=== PATIENT | female | born 1995 | race Caucasian/White ===

== ENCOUNTER 2017-07-15 23:17 | Emergency (ER) | payer BC, SELFPAY ==
[2017-07-15 23:18] VITALS: BP 155/78; PULSE 109; RESP 16; TEMP 36.3; O2SAT 99; BMI 25.8
--- NOTE | 2017-07-15 23:30 | ED.VISSUMM ---
- ER Visit Summary Date of Service: 07/15/17 Chief Complaint: Abdominal pain History of Present Illness: The patient is a 22 F who presents for abdominal pain since this afternoon. Patient states she was having some mild right-sided abdominal pain that gradually worsened over the afternoon. She felt a popping sensation and had more severe pain radiating into the right lower quadrant and into her back. Pain is worse with movement or breathing. She has had associated nausea, vomiting and diarrhea. She has had chills but no measured fever. No dysuria or hematuria. No blood in her stool. She is currently on her period, which is lasted 3 days longer than normal with associated cramping. She states her tampon was very painful to put in today. She does not think she is . History of endometriosis. No history of appendectomy. Patient has been sexually active with the same partner for 2-1/2 years. She has no concerns for sexually transmitted infections. Physical Examination: Vital signs: afebrile, hemodynamically stable, no hypoxia on room air General: well nourished, well developed, appears uncomfortable Skin: warm, dry, no rash, no pallor HEENT: normocephalic and atraumatic; PERRL, EOMI, moist mucous membranes Cardiovascular: tachycardic rate and rhythm without murmurs, no peripheral edema, 2+ pulses all distal extremities Respiratory: No increased work of breathing, lungs are clear to auscultation bilaterally, no rales, rhonchi or wheezing Abdominal: Abdomen is soft, diffusely tender with normoactive bowel sounds, worst in RLQ and McBurney's point, mild rebound tenderness, no guarding, no masses : Normal external genitalia, no lesions, speculum exam shows dark homogenous bloody discharge from the cervix, positive cervical motion tenderness MSK: Moves all extremities, no deformities, normal strength Neuro: Awake and alert, oriented ?4. No facial droop, sensation and motor function intact and symmetric Test Results: Abnormal Lab Results 07/15/17 07/15/17 07/15/17 23:40 23:40 23:55 WBC 12.2 H RBC 4.28 Hgb 13.6 Hct 38.2 MCV 89.3 MCH 31.8 MCHC 35.6 RDW 12.4 RDW Differential 39.9 Plt Count 273 MPV 9.8 Immature Gran % (Auto) 0.200 Neut % (Auto) 77.4 H Lymph % (Auto) 15.8 L [place] % (Auto) 5.7 Eos % (Auto) 0.7 Baso % (Auto) 0.2 Absolute Neuts (auto) 9.4 H Absolute Lymphs (auto) 1.92 Total Counted Not Reportable Sodium 139 Potassium 3.6 Chloride 107 Carbon Dioxide 24.0 Anion Gap 8 BUN 12 Creatinine 0.74 Estim Creat Clear Calc 120.29 Est GFR (MDRD) Af Amer 125 Est GFR (MDRD) Non-Af 103 BUN/Creatinine Ratio 16.2 Glucose 94 Calcium 8.8 Total Bilirubin 0.50 AST 15 ALT 9 L Alkaline Phosphatase 75 Total Protein 7.8 Albumin 3.7 Globulin 4.1 Albumin/Globulin Ratio 0.9 Lipase 78 Urine Color Urine Clarity Urine pH Ur Specific [place] Urine Protein Urine Glucose (UA) Urine Ketones Urine Occult Blood Urine Nitrite Urine Bilirubin Urine Urobilinogen Ur Leukocyte Esterase Urine RBC Urine WBC Ur Squamous Epith Cells Urine Bacteria Urine Mucus Urine Test Negative 07/15/17 23:55 WBC RBC Hgb Hct MCV MCH MCHC RDW RDW Differential Plt Count MPV Immature Gran % (Auto) Neut % (Auto) Lymph % (Auto) [place] % (Auto) Eos % (Auto) Baso % (Auto) Absolute Neuts (auto) Absolute Lymphs (auto) Total Counted Sodium Potassium Chloride Carbon Dioxide Anion Gap BUN Creatinine Estim Creat Clear Calc Est GFR (MDRD) Af Amer Est GFR (MDRD) Non-Af BUN/Creatinine Ratio Glucose Calcium Total Bilirubin AST ALT Alkaline Phosphatase Total Protein Albumin Globulin Albumin/Globulin Ratio Lipase Urine Color Yellow Urine Clarity Clear Urine pH 6.0 Ur Specific [place] 1.015 Urine Protein Negative Urine Glucose (UA) Normal Urine Ketones Negative Urine Occult Blood 150 H Urine Nitrite Negative Urine Bilirubin Negative Urine Urobilinogen Normal Ur Leukocyte Esterase Negative Urine RBC 0-5 SEEN Urine WBC 0 SEEN Ur Squamous Epith Cells 0-5 SEEN Urine Bacteria RARE Urine Mucus 0 SEEN Urine Test Clinical Impression(s) from Imaging Studies Abdomen/Pelvis CT 07/16/17 23:29 IMPRESSION: Bilateral ovarian cysts, hemorrhagic on the left, with small amount of complex free pelvic fluid in pelvic inflammatory fat stranding. Normal appendix. Heterogenous enhancement of the myometrium, may be related to given history of endometriosis. Emergency Department Course and Treatment: Patient presents with severe right lower abdominal pain, with differential including appendicitis, ectopic , ruptured cyst, ovarian torsion, stone, diverticulitis, or other intra-abdominal, rn care transition and pathology. Patient was given morphine and Zofran for symptomatic relief as well as IV hydration. Labs showed a mild leukocytosis of 12.2. Chemistry and hepatic panels were unremarkable. Urine was negative for infection. negative. Because of patient's severe pain in the right lower quadrant, a CT of the abdomen and pelvis was performed. It showed a normal appendix. It showed multiple cysts on the ovaries, including hemorrhagic cysts, as well as mild pelvic fat stranding and mild amount of complex free fluid in the pelvis. Patient discussed with Dr. Zelaya, graining machine operator construction craft laborer, regarding the CT findings. Patient's pulmonary function technician is out of town, and she recommended patient follow-up with her pulmonary function technician but be treated empirically for PID, given the findings on the CT scan. Patient does not suspect exposure to STD, but we also discussed it could be from normal bacterial georgi of the vagina. Given that it is painful for her to insert a tampon, and she had discomfort with palpation of the cervix, this makes PID more suspicious. She was given a dose of doxycycline and metronidazole in the emergency department. IM Rocephin given. Patient feels well enough to go home, and on repeat examination her pain had improved with the morphine. Abdomen is soft, distillery miller but no guarding or rebound at this time. She remains afebrile. Patient will do outpatient treatment empirically for PID and will follow-up as soon as possible with her pulmonary function technician for another evaluation. GC and Chlamydia are pending. Patient given prescription for [place] for her pain and Zofran for nausea, especially since she will be taking these antibiotics. She was discharged home with strict return precautions. Treatment Plan: [] Disposition: [] Impression: PID, RLQ abdominal pain This note was generated with [employer] dictation software. It may contain incorrect words, spelling, and punctuation that were not noted in review of the chart prior to signing ED Disposition - Plan for ED Patient: Disposition: Home or Assisted Living Chief Complaint: Abd Pain Instructions: ED PID Prescriptions: Hydrocodone/Acetaminophen [[place] 5-325 Tablet] 1 ea PO 4X/DAY PRN PRN 3 Days #12 tab PRN Reason: Pain Ondansetron [Zofran Odt] 4 mg PO TID PRN PRN #20 tab.rapdis PRN Reason: Nausea Doxycycline Monohydrate 100 mg PO BID #28 cap Metronidazole 500 mg PO BID #28 tab Referrals: Care Physician,No Primary [Primary Care Provider] - Additional Instructions: Please follow up with your pulmonary function technician Dr. Montesinos in [place] as soon as possible for a repeat evaluation of your pelvic pain. You are being treated with antibiotics in case this is a bacterial pelvic infection. Take all antibiotics as prescribed and do not miss doses, even if you start feeling better before you complete the prescriptions. You may stop taking them if advised to by your doctor. Do not drink alcohol while taking metronidazole. Avoid prolonged sun exposure while taking doxycycline. You may use the ondansetron to help with nausea from the antibiotics. Use over the counter pain medications for pain, and the norco for severe pain. Do not go to work if taking norco. If you develop a high fever, severe pain, uncontrolled vomiting, or have any further concerns, please return emergency department immediately for another evaluation.
--- NOTE | 2017-07-15 23:34 | ED.DCSUM_ITS ---
- ER Visit Summary Date of Service: 07/15/17 Chief Complaint: Abdominal pain History of Present Illness: The patient is a 22 F who presents for abdominal pain since this afternoon. Patient states she was having some mild right-sided abdominal pain that gradually worsened over the afternoon. She felt a popping sensation and had more severe pain radiating into the right lower quadrant and into her back. Pain is worse with movement or breathing. She has had associated nausea, vomiting and diarrhea. She has had chills but no measured fever. No dysuria or hematuria. No blood in her stool. She is currently on her period, which is lasted 3 days longer than normal with associated cramping. She states her tampon was very painful to put in today. She does not think she is . History of endometriosis. No history of appendectomy. Patient has been sexually active with the same partner for 2-1/2 years. She has no concerns for sexually transmitted infections. Physical Examination: Vital signs: afebrile, hemodynamically stable, no hypoxia on room air General: well nourished, well developed, appears uncomfortable Skin: warm, dry, no rash, no pallor HEENT: normocephalic and atraumatic; PERRL, EOMI, moist mucous membranes Cardiovascular: tachycardic rate and rhythm without murmurs, no peripheral edema , 2+ pulses all distal extremities Respiratory: No increased work of breathing, lungs are clear to auscultation bilaterally, no rales, rhonchi or wheezing Abdominal: Abdomen is soft, diffusely tender with normoactive bowel sounds, worst in RLQ and McBurney's point, mild rebound tenderness, no guarding, no masses : Normal external genitalia, no lesions, speculum exam shows dark homogenous bloody discharge from the cervix, positive cervical motion tenderness MSK: Moves all extremities, no deformities, normal strength Neuro: Awake and alert, oriented ?4. No facial droop, sensation and motor function intact and symmetric Test Results: Abnormal Lab Results 07/15/17 07/15/17 07/15/17 23:40 23:40 23:55 WBC 12.2 H RBC 4.28 Hgb 13.6 Hct 38.2 MCV 89.3 MCH 31.8 MCHC 35.6 RDW 12.4 RDW Differential 39.9 Plt Count 273 MPV 9.8 Immature Gran % (Auto) 0.200 Neut % (Auto) 77.4 H Lymph % (Auto) 15.8 L [place] % (Auto) 5.7 Eos % (Auto) 0.7 Baso % (Auto) 0.2 Absolute Neuts (auto) 9.4 H Absolute Lymphs (auto) 1.92 Total Counted Not Reportable Sodium 139 Potassium 3.6 Chloride 107 Carbon Dioxide 24.0 Anion Gap 8 BUN 12 Creatinine 0.74 Estim Creat Clear Calc 120.29 Est GFR (MDRD) Af Amer 125 Est GFR (MDRD) Non-Af 103 BUN/Creatinine Ratio 16.2 Glucose 94 Calcium 8.8 Total Bilirubin 0.50 AST 15 ALT 9 L Alkaline Phosphatase 75 Total Protein 7.8 Albumin 3.7 Globulin 4.1 Albumin/Globulin Ratio 0.9 Lipase 78 Urine Color Urine Clarity Urine pH Ur Specific [place] Urine Protein Urine Glucose (UA) Urine Ketones Urine Occult Blood Urine Nitrite Urine Bilirubin Urine Urobilinogen Ur Leukocyte Esterase Urine RBC Urine WBC Ur Squamous Epith Cells Urine Bacteria Urine Mucus Urine Test Negative 07/15/17 23:55 WBC RBC Hgb Hct MCV MCH MCHC RDW RDW Differential Plt Count MPV Immature Gran % (Auto) Neut % (Auto) Lymph % (Auto) [place] % (Auto) Eos % (Auto) Baso % (Auto) Absolute Neuts (auto) Absolute Lymphs (auto) Total Counted Sodium Potassium Chloride Carbon Dioxide Anion Gap BUN Creatinine Estim Creat Clear Calc Est GFR (MDRD) Af Amer Est GFR (MDRD) Non-Af BUN/Creatinine Ratio Glucose Calcium Total Bilirubin AST ALT Alkaline Phosphatase Total Protein Albumin Globulin Albumin/Globulin Ratio Lipase Urine Color Yellow Urine Clarity Clear Urine pH 6.0 Ur Specific [place] 1.015 Urine Protein Negative Urine Glucose (UA) Normal Urine Ketones Negative Urine Occult Blood 150 H Urine Nitrite Negative Urine Bilirubin Negative Urine Urobilinogen Normal Ur Leukocyte Esterase Negative Urine RBC 0-5 SEEN Urine WBC 0 SEEN Ur Squamous Epith Cells 0-5 SEEN Urine Bacteria RARE Urine Mucus 0 SEEN Urine Test Clinical Impression(s) from Imaging Studies Abdomen/Pelvis CT 07/16/17 23:29 IMPRESSION: Bilateral ovarian cysts, hemorrhagic on the left, with small amount of complex free pelvic fluid in pelvic inflammatory fat stranding. Normal appendix. Heterogenous enhancement of the myometrium, may be related to given history of endometriosis. Emergency Department Course and Treatment: Patient presents with severe right lower abdominal pain, with differential including appendicitis, ectopic , ruptured cyst, ovarian torsion, stone, diverticulitis, or other intra -abdominal, sweatband shaper and pathology. Patient was given morphine and Zofran for symptomatic relief as well as IV hydration. Labs showed a mild leukocytosis of 12.2. Chemistry and hepatic panels were unremarkable. Urine was negative for infection. negative. Because of patient's severe pain in the right lower quadrant, a CT of the abdomen and pelvis was performed. It showed a normal appendix. It showed multiple cysts on the ovaries, including hemorrhagic cysts, as well as mild pelvic fat stranding and mild amount of complex free fluid in the pelvis. Patient discussed with Dr. Zelaya, punch molder hydroelectric production technician, regarding the CT findings. Patient's adult services librarian is out of town, and she recommended patient follow-up with her adult services librarian but be treated empirically for PID, given the findings on the CT scan. Patient does not suspect exposure to STD, but we also discussed it could be from normal bacterial georgi of the vagina. Given that it is painful for her to insert a tampon, and she had discomfort with palpation of the cervix, this makes PID more suspicious. She was given a dose of doxycycline and metronidazole in the emergency department. IM Rocephin given. Patient feels well enough to go home , and on repeat examination her pain had improved with the morphine. Abdomen is soft, still operator gin but no guarding or rebound at this time. She remains afebrile. Patient will do outpatient treatment empirically for PID and will follow-up as soon as possible with her adult services librarian for another evaluation. GC and Chlamydia are pending. Patient given prescription for [place] for her pain and Zofran for nausea, especially since she will be taking these antibiotics. She was discharged home with strict return precautions. Treatment Plan: [] Disposition: [] Impression: PID, RLQ abdominal pain This note was generated with [employer] dictation software. It may contain incorrect words, spelling, and punctuation that were not noted in review of the chart prior to signing ED Disposition - Plan for ED Patient: Disposition: Home or Assisted Living Chief Complaint: Abd Pain Instructions: ED PID Prescriptions: Hydrocodone/Acetaminophen [[place] 5-325 Tablet] 1 ea PO 4X/DAY PRN PRN 3 Days # 12 tab PRN Reason: Pain Ondansetron [Zofran Odt] 4 mg PO TID PRN PRN #20 tab.rapdis PRN Reason: Nausea Doxycycline Monohydrate 100 mg PO BID #28 cap Metronidazole 500 mg PO BID #28 tab Referrals: Care Physician,No Primary [Primary Care Provider] - Additional Instructions: Please follow up with your adult services librarian Dr. Montesinos in [place] as soon as possible for a repeat evaluation of your pelvic pain. You are being treated with antibiotics in case this is a bacterial pelvic infection. Take all antibiotics as prescribed and do not miss doses, even if you start feeling better before you complete the prescriptions. You may stop taking them if advised to by your doctor. Do not drink alcohol while taking metronidazole. Avoid prolonged sun exposure while taking doxycycline. You may use the ondansetron to help with nausea from the antibiotics. Use over the counter pain medications for pain, and the norco for severe pain. Do not go to work if taking norco. If you develop a high fever, severe pain, uncontrolled vomiting, or have any further concerns, please return emergency department immediately for another evaluation.
[2017-07-15] MEDS: Morphine 4 MG/ML Syringe IV (23:51)
[2017-07-15] MEDS: 0.9% Normal Saline 1,000 ML 1000 ML IV (23:51)
[2017-07-15 23:52] LABS: Absolute Lymphocyte Count 1.92 X10^3/ul (0.83-4.51); Absolute Neutrophil Count 9.4 X10^3/uL (2.0-7.7); Basophil# 0.03 X10^3/uL; Basophil% 0.2 % (0-1); Eosinophil# 0.09 X10^3/uL; Eosinophils% 0.7 % (0-5); Hematocrit 38.2 % (37-47); Hemoglobin 13.6 g/dl (12.0-15.0); Lymphocyte # 1.92 X10^3/ul (4.0); Lymphocyte % 15.8 % (19-41); Mean Corp Hgb Conc 35.6 g/gl (32-36); Mean Corpuscular Hgb 31.8 pg (27.0-32.0); Mean Corpuscular Volume 89.3 fL (81-99); Mean Platelet Vol. 9.8 fl (6.2-12.0); Monocyte# 0.69 X10^3/uL; Monocyte% 5.7 % (0-10); Neutrophil # 9.43 X10^3/uL (2.7-7.7); Neutrophil % 77.4 % (47-70); Platelet Count 273 K/mm3 (150-450); RBC Distribution Width CV 12.4 % (11.6-14.6); RBC Distribution Width SD 39.9 fl (35.1-43.9); Red Blood Count 4.28 M/mm3 (4.2-5.4); White Blood Count 12.2 K/mm3 (4.4-11.0)
[2017-07-15] MEDS: Ondansetron 4 MG/2 ML Vial IV (23:52)
[2017-07-15 23:55] LABS: POSITIVE COUNT NO; POSITIVE DIFFERENTIAL NO; POSITIVE MORPHOLOGY NO
[2017-07-16 00:03] LABS: Mucous, Urine 0 SEEN /hpf (<or=2+); White Blood Cells 0 SEEN /hpf (0-5)
[2017-07-16 00:06] LABS: Color, Urine Yellow (Yellow); Glucose, Dipstick Normal (Normal); Ketone-Dipstick Negative (Negative); Leukocyte Esterase-Dipstick Negative /ul (Negative); Nitrite-Dipstick Negative (Negative); Occult Blood-Urine 150 /ul (Negative); Protein-Dipstick Negative (Negative); Specific Gravity, Urine 1.015 (1.002-1.030); Urine Bilirubin Dipstick Negative (Negative); Urine Clarity Clear (Clear); Urine Urobilinogen Normal (Normal)
[2017-07-16 00:08] LABS: Internal QC Validated? YES +Cl - CLEAR BKGD; Pregnancy, Urine Negative Negative
[2017-07-16 00:11] LABS: Bacteria RARE /hpf (None Seen); Red Blood Cells-Urine 0-5 SEEN /hpf (0-5); Squamous Epithelial Cells - UA 0-5 SEEN /hpf (5-10)
[2017-07-16 00:11] LABS: ALB/GLOB Ratio 0.9 RATIO (0.9-2.4); AST(SGOT) 15 U/L (15-37); Alanine Aminotransfer ALT/SGPT 9 U/L (13-56); Albumin, Serum 3.7 g/dL (3.2-5.0); Alkaline Phosphatase 75 U/L (45-117); Anion Gap 8 (5-15); BUN 12 mg/dL (7-18); BUN/Creat Ratio 16.2 RATIO (10-20); Calcium,Total 8.8 mg/dL (8.5-10.1); Chloride 107 mmol/L (98-107); Creatinine, Serum 0.74 mg/dL (0.55-1.02); EST Glomerular Filtration Rate 103 mL/min (>60); Est Glom Filt Rate - Afr Amer 125 mL/min (>60); Estimated Creatinine Clearance 120.29 ml/min; Globulin 4.1 g/dL (2.2-4.2); Glucose 94 mg/dL (74-106); Lipase 78 U/L (73-393); Potassium 3.6 mmol/L (3.5-5.1); Protein, Total 7.8 g/dL (6.4-8.2); Sodium Level 139 mmol/L (136-145)
--- NOTE | 2017-07-16 01:32 | ED.DEP ---
ED Disposition - Plan for ED Patient: Disposition: Home or Assisted Living Chief Complaint: Abd Pain Instructions: ED PID Prescriptions: Hydrocodone/Acetaminophen [[place] 5-325 Tablet] 1 ea PO 4X/DAY PRN PRN 3 Days #12 tab PRN Reason: Pain Ondansetron [Zofran Odt] 4 mg PO TID PRN PRN #20 tab.rapdis PRN Reason: Nausea Doxycycline Monohydrate 100 mg PO BID #28 cap Metronidazole 500 mg PO BID #28 tab Referrals: Care Physician,No Primary [Primary Care Provider] - Additional Instructions: Please follow up with your ampoule filler and sealer Dr. Montesinos in [place] as soon as possible for a repeat evaluation of your pelvic pain. You are being treated with antibiotics in case this is a bacterial pelvic infection. Take all antibiotics as prescribed and do not miss doses, even if you start feeling better before you complete the prescriptions. You may stop taking them if advised to by your doctor. Do not drink alcohol while taking metronidazole. Avoid prolonged sun exposure while taking doxycycline. You may use the ondansetron to help with nausea from the antibiotics. Use over the counter pain medications for pain, and the norco for severe pain. Do not go to work if taking norco. If you develop a high fever, severe pain, uncontrolled vomiting, or have any further concerns, please return emergency department immediately for another evaluation.
--- NOTE | 2017-07-16 01:36 | DCINST.ED_ITS ---
ED Disposition - Plan for ED Patient: Disposition: Home or Assisted Living Chief Complaint: Abd Pain Instructions: ED PID Prescriptions: Hydrocodone/Acetaminophen [[place] 5-325 Tablet] 1 ea PO 4X/DAY PRN PRN 3 Days # 12 tab PRN Reason: Pain Ondansetron [Zofran Odt] 4 mg PO TID PRN PRN #20 tab.rapdis PRN Reason: Nausea Doxycycline Monohydrate 100 mg PO BID #28 cap Metronidazole 500 mg PO BID #28 tab Referrals: Care Physician,No Primary [Primary Care Provider] - Additional Instructions: Please follow up with your disability advocate Dr. Montesinos in [place] as soon as possible for a repeat evaluation of your pelvic pain. You are being treated with antibiotics in case this is a bacterial pelvic infection. Take all antibiotics as prescribed and do not miss doses, even if you start feeling better before you complete the prescriptions. You may stop taking them if advised to by your doctor. Do not drink alcohol while taking metronidazole. Avoid prolonged sun exposure while taking doxycycline. You may use the ondansetron to help with nausea from the antibiotics. Use over the counter pain medications for pain, and the norco for severe pain. Do not go to work if taking norco. If you develop a high fever, severe pain, uncontrolled vomiting, or have any further concerns, please return emergency department immediately for another evaluation.
[2017-07-16] MEDS: Doxycycline 100 MG CAPSULE PO (01:51)
[2017-07-16] MEDS: Ceftriaxone 500 MG Vial 250 MG IM (01:51)
[2017-07-16] MEDS: metroNIDAZOLE 500 MG Tablet PO (01:51)
[2017-07-16] MEDS: HYDROcodone Bitartrate/Apap 5/325 Tablet PO (01:54)
[2017-07-16 01:55] VITALS: BP 111/66; PULSE 74; RESP 18; O2SAT 100
[2017-07-16 03:11] LABS: Neisserai gonorrhoeae by PCR Negative (Negative); Probe Check PASS
--- NOTE | 2017-07-16 04:33 | NURSING ---
PT WAITED UNTIL 04:30, WHEN THE MEDICATION SHE WAS WORE OFF.
[2017-07-16 08:55] LABS: Chlamydia Trachomatis by PCR POSITIVE (Negative)
--- NOTE | 2017-07-16 23:29 | CT_ITS ---
CT Abdomen And Pelvis W/ Contrast INDICATION: N/V/D SINCE 1630, ABD PAIN SINCE 1400, BACK PAIN WITH INSPIRATION, PROLONGED BLEEDING POST PERIOD, HX OVARIAN CYSTS AND ENDOMETRIOSIS COMPARISON: None TECHNIQUE: Axial CT imaging of the abdomen and pelvis with IV contrast. Coronal and sagittal reformatted images. 100 mL of Isovue-300 were given intravenously. FINDINGS: The visualized lung bases are clear. The heart size is normal. The liver, gallbladder, spleen, adrenal glands, and pancreas are unremarkable. The kidneys enhance contrast symmetrically bilaterally and are without evidence of hydronephrosis. The bowel loops are nondistended. The appendix is unremarkable. Inflammatory fat stranding is noted in the pelvis. The uterus demonstrates heterogenous enhancement. Bilateral ovarian cysts are noted, a peripherally enhancing 1.9 cm cyst is noted in the left ovary, which may represent hemorrhagic cyst. Largest cyst in the right ovary measures 2.5 cm. A small amount of complex fluid is noted in the deep pelvis. A tampon is present. The urinary bladder is physiologically distended. Mild diffuse fat stranding is noted in the pelvis. No evidence of free air. CT/Abdomen/Pelvis W IV Cont ONLY IMPRESSION: Bilateral ovarian cysts, hemorrhagic on the left, with small amount of complex free pelvic fluid in pelvic inflammatory fat stranding. Normal appendix. Heterogenous enhancement of the myometrium, may be related to given history of endometriosis. at 0050 Reported and signed by: Aurora Briceno MD Electronically Signed: Aurora Briceno MD at 0:48 EDT Tel , Service support ,
== END 2017-07-16 04:34 | disposition home or self-care (01) ==
PROVIDERS: Emergency Provider Emergency Medicine
DX: N73.9 Female pelvic inflammatory disease, unspecified (principal); R10.31 Right lower quadrant pain; Z72.0 Tobacco use
CPT/HCPCS: 74177; 80053; 81001; 81025; 83690; 85025; 87210; 87491; 87591; 96361; 96372; 96374; 96375; 99284; J7030; Q9967; A4216; J2405

== ENCOUNTER 2018-06-22 03:13 | Emergency (ER) | payer BC, SELFPAY ==
[2018-06-22 03:14] VITALS: BP 125/67; PULSE 86; RESP 14; TEMP 37.3; O2SAT 99
[2018-06-22 03:27] VITALS: BP 125/70; PULSE 85; RESP 14; TEMP 36.6; O2SAT 99; BMI 29.8
--- NOTE | 2018-06-22 03:33 | ED.VIS.GEN ---
History of Present Illness Chief Complaint: Vag Bleeding Narrative: Patient stated she is having painful periods. She started her menses 3 days ago. She had some clots this evening at work. Her pain was significant that her boss told her to leave work. She has not taken anything for it. She had multiple clots tonight. Prior to tonight she did not have any significant bleeding over the last 2 days. She does have a history of heavy periods. She also has a history of ovarian cyst and said she gets them frequently. She has worsening left lower abdominal pain and thinks it might be an ovarian cyst contributing as well. No urinary symptoms. Denies . Current severity is mild to moderate. Past Medical History - Allergies and Home Meds Allergies/Adverse Reactions: Allergies No Known Allergies Allergy (Verified 07/15/17 23:21) Primary Care Physician: Care Physician,No Primary [Primary Care Provider] - Prior records reviewed: Yes Past Medical History: - - Ovarian cyst, menorrhagia Surgical History: - - Reviewed Smoking Status: Current every day smoker Alcohol: None Drugs: None Review of Systems General: Denies: Chills, Fever, Sweats Eyes: Denies: Visual changes - bilaterally, Diplopia ENT: Denies: Rhinorrhea, Sore throat Cardiovascular: Denies: Chest pain, Palpitations Respiratory: Denies: Dyspnea, Cough, Dyspnea on exertion Gastrointestinal: Reports: Abdominal pain. Denies: Nausea, Vomiting, Diarrhea, Melena, Hematochezia Genitourinary: Denies: Dysuria, Hematuria, Frequency Musculoskeletal: Denies: Back pain, Extremity Pain Skin: Denies: Rash, Wounds Neurological: Denies: Headache, Weakness, Numbness Physical Exam Vital Signs/Narrative: Vital Signs Temp Pulse Resp BP Pulse Ox 06/22/18 03:27 98 F 85 14 125/70 H 99 06/22/18 03:14 99.2 F H 86 14 125/67 H 99 General: Well nourished, Well developed, No Acute Distress Head: Normocephalic, Atraumatic Eyes: Perr[place], EOMI ENT: Moist mucous membranes, No rhinorrhea Neck: Supple, Nontender Cardiovascular: Regular rate, Regular rhythm, No murmurs Respiratory: No distress, CTA bilaterally, Chest nontender Abdomen: Soft, Nondistended, Normal bowel sounds, Tender - Mild diffuse lower abdominal tenderness Back: Nontender, Normal Inspection Extremities: Nontender, No edema Skin: Normal color, No rash Neurological: Alert, Oriented x3, Cranial nerves II-XII grossly intact, Normal Strength, Normal Sensation Psychological: Normal affect, Normal Mood Diagnostic/Tx/Re-eval - Medical Decision Making Patient given a dose of morphine. Lab work obtained lab work shows no abnormality. CBC and negative. I do not feel she needs further evaluation. She is resting comfortably. Feels better after treatment. I think this is related to her menses. This is been an ongoing problem for her. I do not think she has cervicitis or PID she has had in the past. She will follow-up with her FITNESS SPECIALIST. Instructed to use NSAIDs ED Disposition - Plan for ED Patient: Disposition: Home or Assisted Living Diagnosis: Dysmenorrhea Instructions: ED Cramping Menstrual Referrals: Care Physician,No Primary [Primary Care Provider] -
[2018-06-22] MEDS: Morphine 4 MG/ML Syringe IV (03:42)
[2018-06-22 04:04] LABS: Absolute Lymphocyte Count 2.53 X10^3/ul (0.83-4.51); Absolute Neutrophil Count 4.7 X10^3/uL (2.0-7.7); Basophil# 0.02 X10^3/uL; Basophil% 0.3 % (0-1); Eosinophil# 0.22 X10^3/uL; Eosinophils% 2.8 % (0-5); Hematocrit 37.5 % (37-47); Hemoglobin 13.2 g/dl (12.0-15.0); Lymphocyte # 2.53 X10^3/ul (4.0); Lymphocyte % 32.5 % (19-41); Mean Corp Hgb Conc 35.2 g/gl (32-36); Mean Corpuscular Hgb 31.4 pg (27.0-32.0); Mean Corpuscular Volume 89.3 fL (81-99); Monocyte# 0.33 X10^3/uL; Monocyte% 4.2 % (0-10); Neutrophil # 4.67 X10^3/uL (2.7-7.7); Neutrophil % 60.1 % (47-70); Platelet Count 242 K/mm3 (150-450); RBC Distribution Width CV 12.3 % (11.6-14.6); RBC Distribution Width SD 39.5 fl (35.1-43.9); White Blood Count 7.8 K/mm3 (4.4-11.0)
[2018-06-22 04:09] LABS: Internal QC Validated? YES +Cl - CLEAR BKGD; POSITIVE COUNT NO; POSITIVE DIFFERENTIAL NO; POSITIVE MORPHOLOGY NO; Pregnancy, Serum, hCG Quali. NEGATIVE Negative
[2018-06-22 04:17] VITALS: BP 118/60; PULSE 80; RESP 14; O2SAT 98
== END 2018-06-22 04:35 | disposition home or self-care (01) ==
PROVIDERS: Emergency Provider Emergency Medicine
DX: N94.6 Dysmenorrhea, unspecified (principal); F17.200 Nicotine dependence, unspecified, uncomplicated
CPT/HCPCS: 84703; 85025; 96374; 99283; A4216

== ENCOUNTER 2018-10-05 00:43 | Emergency (ER) | payer OTHER, BC, SELFPAY ==
[2018-10-05 00:46] VITALS: BP 153/103; PULSE 102; RESP 26; TEMP 36.9; O2SAT 96; BMI 28.5
--- NOTE | 2018-10-05 01:14 | RAD_ITS ---
STUDY: X-RAY - LEFT FOOT CLINICAL: Female, 23 years old. FORK SMASHED LT FOOT TECHNIQUE: 3 view(s) of the foot. COMPARISON: None. FINDINGS: Normal talus, calcaneus, and tarsal bones. Normal visualized subtalar, talonavicular, calcaneocuboid, tarsal and tarsometatarsal articulations. Normal metatarsi. Normal metatarsophalangeal joint of the great toe. Normal tibial and fibular sesamoid bones. Normal interphalangeal joint of the great toe. Nondisplaced fractures of the base and tip of the distal phalanx of the big toe. Normal second through fifth metatarsophalangeal joints. Normal interphalangeal joints and phalanges of the lesser toes. The soft tissue structures are unremarkable. RAD/Foot min 3 Views IMPRESSION: Nondisplaced fractures of the base and tip of the distal phalanx of the big toe. Electronically Signed: Mario Ackerman, at 2:29 EDT Tel , Service support ,
[2018-10-05] MEDS: Diphth,Pertuss(Acell),Tet Vac 0.5 ML Vial IM (01:54)
--- NOTE | 2018-10-05 02:43 | ED.VISSUMM ---
- ER Visit Summary Date of Service: 10/05/18 Chief Complaint: Left first toe injury History of Present Illness: The patient is a 23 F who presents with an injury to her left foot/first toe. 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 When she moved to this the [place] were trying to go down and caught her foot between the [place] in the concrete floor. She did have steel toes on however as she was trying to remove her foot it shifted and the fork press down on her foot and left first toe if she was pulling it out of her shoe. Physical Examination: Afebrile vitals notable for heart rate 102 Patient crying appears to be in pain Patient has a near complete avulsion of the left first toenail active full range of motion brisk capillary refill sensation intact light touch Test Results: X-ray shows a fracture at the tip and base of the distal phalanx of the left first toe. Emergency Department Course and Treatment: Patient underwent a digital block with 5 cc of lidocaine. The nail was removed. Nailbed examined and there is no nailbed laceration. The nail was placed back under the nail fold dressings applied toes were jaiden taped and she was given a postoperative shoe. We will treat as potentially open fracture. Patient was given Keflex here. Her tetanus was also updated. She was placed on antibiotics analgesics and referred to orthopedics for follow-up. Treatment Plan: [] Disposition: Discharge Impression: Left first toe fracture Nail avulsion This note was generated with [employer] dictation software. It may contain incorrect words, spelling, and punctuation that were not noted in review of the chart prior to signing ED Disposition - Plan for ED Patient: Referrals: Care Physician,No Primary [Primary Care Provider] -
--- NOTE | 2018-10-05 02:46 | DCINST.ED_ITS ---
ED Disposition - Plan for ED Patient: Instructions: NAIL AVULSION, Complete, FRACTURE, Toe [Open] Prescriptions: Cephalexin [Keflex] 500 mg PO Q6 #40 capsule Hydrocodone Bitart/Apap 5-325 [[place] 5MG-325MG] 1 tablet PO Q6H PRN PRN 3 Days #10 tablet PRN Reason: Pain Referrals: Care Physician,No Primary [Primary Care Provider] - Serjio Craft MD [STAFF PHYSICIAN] -
[2018-10-05] MEDS: HYDROcodone Bitartrate/Apap 5/325 Tablet PO (03:01)
[2018-10-05] MEDS: Cephalexin 250 MG Capsule 500 MG PO (03:02)
[2018-10-05 03:24] VITALS: RESP 16
== END 2018-10-05 03:24 | disposition home or self-care (01) ==
PROVIDERS: Emergency Provider Emergency Medicine
DX: S92.425A Nondisplaced fracture of distal phalanx of left great toe, initial encounter for closed fracture (principal); Z72.0 Tobacco use; W31.89XA Contact with other specified machinery, initial encounter; Y93.89 Activity, other specified; Y92.89 Other specified places as the place of occurrence of the external cause; Y99.0 Civilian activity done for income or pay
CPT/HCPCS: 11750; 11760; 73630; 90715; 99285

== ENCOUNTER 2020-07-14 10:40 | Outpatient (RCR) | payer BC, SELFPAY | END 2020-08-18 23:59 | LOC: IMMUN 10:40 | PROVIDERS: Referring Provider Family Medicine; Visit Provider Family Medicine | DX: Z23 Encounter for immunization (principal) | CPT/HCPCS: 0001A; 0002A; 91300 ==

== ENCOUNTER 2022-07-29 18:11 | Emergency (ER) | payer BC, SELFPAY ==
[2022-07-29 18:12] VITALS: BP 112/72; PULSE 83; RESP 18; TEMP 36.1; O2SAT 100; BMI 21.7
--- NOTE | 2022-07-29 18:51 | CT_ITS ---
STUDY: CT ABDOMEN AND PELVIS WITHOUT CONTRAST REASON FOR EXAM: Female, 27 years old. Kidney Stone RADIATION DOSAGE (If Supplied By Facility): CTDIvol = ( 6.18 ) mGy, DLP = ( 299.59 ) mGycm TECHNIQUE: Transaxial images were obtained from the dome of the diaphragm to the symphysis pubis without oral contrast, and without intravenous contrast. Sagittal and coronal images were reconstructed. Individualized dose optimization techniques were used for this CT. COMPARISON: None. FINDINGS: The visualized lung bases are unremarkable. The visualized portions of the heart are within normal limits. Normal liver. Normal gallbladder and extrahepatic biliary system. Normal spleen. Normal pancreas. Normal bilateral adrenal glands. Normal right kidney. Normal left kidney. Normal visualized stomach. Nonspecific ileus with diffuse fecal retention in the colon. The appendix is visualized and appears normal. Normal abdominal aorta. Normal inferior vena cava. Normal retroperitoneum. Incompletely distended thick walled bladder likely of no significance. Normal abdominal wall. Normal osseous structures. CT/Abdomen/Pelvis without Cont IMPRESSION: Nonspecific ileus with diffuse fecal retention in the colon. No evidence for small bowel obstruction. No evidence for renal calculi or obstruction. Electronically Signed: Rogelio Elmore MD at 20:01 EDT ,
[2022-07-29 18:55] LABS: Mucous, Urine 0 SEEN /hpf (<or=2+); Squamous Epithelial Cells - UA 0 SEEN /hpf (5-10)
[2022-07-29 19:00] LABS: Color, Urine Yellow (Yellow); Glucose, Dipstick Normal (Normal); Ketone-Dipstick Negative (Negative); Leukocyte Esterase-Dipstick 500 /ul (Negative); Nitrite-Dipstick Positive (Negative); Occult Blood-Urine 250 /ul (Negative); Protein-Dipstick 30 mg/dl (Negative); Urine Clarity Clear (Clear); Urine Urobilinogen 1 mg/dl (Normal)
[2022-07-29] MEDS: Ketorolac 15 MG/ML Vial IV (19:03)
[2022-07-29] MEDS: Ondansetron 4 MG/2 ML Vial IV (19:03)
[2022-07-29 19:07] LABS: Red Blood Cells-Urine 50-100 SEEN /hpf (0-5); Urine Bilirubin Dipstick 1 mg/dL (Negative); White Blood Cells 50-100 SEEN /hpf (0-5)
[2022-07-29 19:08] LABS: Bacteria 1+ /hpf (None Seen); Internal QC Validated? YES +Cl - CLEAR BKGD; Pregnancy, Urine Negative Negative
[2022-07-29 19:12] LABS: Absolute Lymphocyte Count 1.49 X10^3/uL (0.83-4.51); Absolute Neutrophil Count 6.6 X10^3/uL (2.0-7.7); Basophil# 0.04 X10^3/uL; Basophil% 0.5 % (0-1); Eosinophil# 0.35 X10^3/uL; Eosinophils% 3.9 % (0-5); Hematocrit 36.8 % (37-47); Hemoglobin 12.5 g/dL (12.0-15.0); Lymphocyte # 1.49 X10^3/ul (0.83-4.51); Lymphocyte % 16.8 % (19-41); Mean Corpuscular Hgb 30.5 pg (27.0-32.0); Mean Corpuscular Volume 89.8 fL (81-99); Mean Platelet Vol. 9.8 fl (6.2-12.0); Monocyte# 0.42 X10^3/uL; Monocyte% 4.7 % (0-10); NRBC Flagged by Analyzer 0 % (0-5); Neutrophil # 6.55 X10^3/uL (2.7-7.7); Neutrophil % 73.9 % (47-70); Platelet Count 236 K/mm3 (150-450); RBC Distribution Width CV 11.9 % (11.6-14.6); RBC Distribution Width SD 39.2 fl (35.1-43.9); White Blood Count 8.9 K/mm3 (4.4-11.0)
[2022-07-29 19:26] LABS: Anion Gap 9 (5-15); BUN 12 mg/dL (7-18); BUN/Creat Ratio 16.2 RATIO (10-20); Calcium,Total 8.8 mg/dL (8.5-10.1); Chloride 107 mmol/L (98-107); Creatinine, Serum 0.74 mg/dL (0.55-1.02); EST Glomerular Filtration Rate 100 mL/min (>60); Est Glom Filt Rate - Afr Amer 120 mL/min (>60); Glucose 86 mg/dL (74-106); Potassium 3.6 mmol/L (3.5-5.1); Sodium Level 141 mmol/L (136-145)
[2022-07-29 20:11] VITALS: RESP 18
[2022-07-29] MEDS: Ceftriaxone 1 GM/50 ML BAG IV (20:12)
--- NOTE | 2022-07-29 20:13 | ED.VIS.FEGU ---
HPI HPI - Female History of Present Illness Chief Complaint: Flank Pain Narrative Narrative: 27-year-old female presenting with hematuria, dysuria, left flank pain for the last couple of days. She denies fever but she does admit to some nausea. No history of kidney stones. She states it has been a few days she has a bowel movement. She describes the pain and left-sided sharp. She is also having hematuria and she is passing clots today. PFSH PFS Medical History COVID-19 Encounter for screening for COVID-19 URI (upper respiratory infection) Home Medications hydrocodone-acetaminophen 5-325mg 5mg-325mg 1 tab PO Q6H PRN PRN Pain 3 days #12 TABLETS 07/29/22 [Rx Last Taken Unknown] ondansetron 4 mg disintegrating tablet 4 mg PO Q8H PRN PRN Nausea #14 tabs 07/29/22 [Rx Last Taken Unknown] sulfamethoxazole 800 mg-trimethoprim 160 mg tablet (Bactrim DS) 1 tab PO DAILY #20 tabs 07/29/22 [Rx Last Taken Unknown] Allergy/AdvReac Type Severity Reaction Status Date / Time bee venom protein (honey bee) Allergy Anaphylaxis Verified 07/29/22 18:12 Social History Smoking Status: Former smoker alcohol intake: current alcohol intake frequency: holidays/special occasions only ROS ROS ED Constitutional Constitutional ED: Denies chills, fever(s) or sweats Eyes Eyes: Denies blurry vision or change in vision ENT ENT ED: Denies ear pain or sore throat Cardiovascular Cardiovascular: Denies chest pain, palpitations or racing heartbeat Respiratory/Chest Respiratory/Chest: Denies cough, dyspnea or sputum Gastrointestinal Gastrointestinal: Reports abdominal pain and nausea; Denies constipation, diarrhea or vomiting Genitourinary Genitourinary ED: Reports dysuria, hematuria and urinary frequency Musculoskeletal Musculoskeletal: Denies arthralgias, myalgias or neck pain Integumentary Denies abscess, Abrasions or rash Neurologic Neurologic: Denies headache(s), paresthesias or weakness Psychiatric Psychiatric: Denies anxiety, depression, suicidal ideation or suicidal thoughts Endocrine Endocrinology: Denies polydipsia or polyuria EXAM Physical Exam Const Vital Signs: 07/29/22 18:12 Temperature 96.9 F L Temperature Source Temporal Pulse Rate 83 Respiratory Rate 18 Blood Pressure 112/72 Blood Pressure Mean 85 Pulse Ox 100 Oxygen Delivery Method Room Air Positive well nourished General Appearance ED: NAD HEENT Reports TM's clear Tympanic Membrane ED: Yes TM's clear Eyes PERRL and EOMs intact bilaterally Resp normal respiratory effort Cardio regular rate and regular rhythm Back/Spine General Back: CVA tenderness left Extremity normal to inspection Neuro oriented x3 and CN's II-XII intact bilaterally Sensorium / Orientation: alert Motor Exam: strength 5/5 throughout Psych mental status grossly normal Skin no rashes or lesions noted MDM MDM MDM Narrative Medical decision making narrative: 27-year-old presenting with left flank pain, dysuria, hematuria. Differential includes UTI, pyelonephritis, ureteral stone, renal calculi, diverticulitis, constipation. CBC to assess white blood cell count, hemoglobin, platelets, differential. BMP to assess renal function, electrolytes, glucose, anion gap. Urinalysis to assess for UTI and occult hematuria. hCG to assess for . CT of the abdomen/pelvis without contrast to rule out kidney stone. CBC and BMP are unremarkable. Urinalysis positive for occult blood and UTI. Patient was given a gram of Rocephin IV. Initially medicated with Toradol and Zofran and states her pain is down to a 6. She is given additional [address] of the abdomen pelvis does not show any kidney stones or pyelonephritis on CT but clinically I believe she has pyelonephritis. CT of the abdomen pelvis does show constipation. This was discussed with the patient. I am going to give her a prescription for Bactrim, Naprosyn and [place] for breakthrough abdominal pain. I recommended that she take a laxative/stool softener because the pain medication will make her constipated. She acknowledges understanding of this. Return precautions were discussed. She requested a work note and this was provided. Impression: 1. Pyelonephritis 2. Constipation Lab Data Labs: Laboratory Results - last 24 hr 07/29/22 07/29/22 07/29/22 18:45 19:00 19:00 WBC 8.9 RBC 4.10 L Hgb 12.5 Hct 36.8 L MCV 89.8 MCH 30.5 MCHC 34.0 RDW Std Deviation 39.2 RDW Coeff of Jina 11.9 Plt Count 236 MPV 9.8 Immature Gran % (Auto) 0.200 Neut % (Auto) 73.9 H Lymph % (Auto) 16.8 L [place] % (Auto) 4.7 Eos % (Auto) 3.9 Baso % (Auto) 0.5 Absolute Neuts (auto) 6.6 Absolute Lymphs (auto) 1.49 Nucleated RBC % 0 Sodium 141 Potassium 3.6 Chloride 107 Carbon Dioxide 25.0 Anion Gap 9 BUN 12 Creatinine 0.74 Estim Creat Clear Calc 115.20 Est GFR (MDRD) Af Amer 120 Est GFR (MDRD) Non-Af 100 BUN/Creatinine Ratio 16.2 Glucose 86 Calcium 8.8 Urine Color Yellow Urine Clarity Clear Urine pH 6.0 Ur Specific [place] 1.010 Urine Protein 30 H Urine Glucose (UA) Normal Urine Ketones Negative Urine Occult Blood 250 H Urine Nitrite Positive H Urine Bilirubin 1 H Urine Urobilinogen 1 H Ur Leukocyte Esterase 500 H Urine RBC 50-100 SEEN Urine WBC 50-100 SEEN Ur Squamous Epith Cells 0 SEEN Urine Bacteria 1+ Urine Mucus 0 SEEN Urine Test Negative Radiography Diagnostic Testing: Clinical Impression(s) from Imaging Studies Abdomen/Pelvis CT 07/29/22 18:51 IMPRESSION: Nonspecific ileus with diffuse fecal retention in the colon. No evidence for small bowel obstruction. No evidence for renal calculi or obstruction. Electronically Signed: Rogelio Elmore MD at 20:01 EDT Reading Location ID and State: [address] [place] [address] , Service support , Discharge Plan Triage Chief Complaint: Flank Pain Other Complaint: Complaint ED Provider: Miguel Ángel Sommers Dx/Rx/DC Orders Instructions: ED Pyelonephritis, Female (Adult) Prescriptions: New sulfamethoxazole-trimethoprim [Bactrim DS] 800-160 mg tablet 1 tab PO DAILY Qty: 20 0RF ondansetron 4 mg tablet,disintegrating 4 mg PO Q8H PRN PRN (Reason: Nausea) Qty: 14 0RF hydrocodone-acetaminophen 5-325 mg tablet 1 tab PO Q6H PRN PRN (Reason: Pain) 3 Days Qty: 12 0RF Stand Alone Forms: ED Work / School Excuse Primary Care Provider: Care Physician,No Primary Referrals: Eric Mancia DO [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
[2022-07-29] MEDS: Morphine 4 MG/ML Syringe IV (20:17)
== END 2022-07-29 21:01 | disposition home or self-care (01) ==
PROVIDERS: Emergency Provider Student in an Organized Health Care Education/Training Program; Referring Provider Student in an Organized Health Care Education/Training Program; Visit Provider Student in an Organized Health Care Education/Training Program
DX: N12 Tubulo-interstitial nephritis, not specified as acute or chronic (principal); R31.9 Hematuria, unspecified; R30.0 Dysuria; Z87.891 Personal history of nicotine dependence; R35.0 Frequency of micturition; K59.00 Constipation, unspecified
CPT/HCPCS: 74176; 80048; 81001; 81025; 85025; 96365; 96375; 99283; A4216; J2405

== ENCOUNTER 2024-09-10 10:00 | Day surgery (SDC) | payer BC, SELFPAY ==
--- NOTE | 2024-09-08 11:59 | PCM.HP.BLA ---
History and Physical Date of Admission: 09/10/24 Expand All Collapse All Pre-Op History and Physical HPI: The patient is a 29 year old female presenting for pre-operative visit. She is scheduled for Hysteroscopy D&C and polypectomy, insertion of liletta IUD- for AUB, endometrial polyp on 09/10/24. Procedure discussed along with risks, benefits and complications. Other alternatives discussed for management. Consent form signed? Yes. PAST MEDICAL HISTORY PAST MEDICAL HISTORY Diagnosis Date ? Abnormal uterine bleeding 07/12/2024 ? Acne vulgaris 07/12/2024 ? ADHD (attention deficit hyperactivity disorder) ? Endometrial polyp 07/12/2024 ? Generalized anxiety disorder ? History of polycystic ovaries 07/12/2024 ? Ovarian cyst ? Ovarian cyst, right 07/12/2024 ? Polycystic ovaries PAST SURGICAL HISTORY PAST SURGICAL HISTORY Procedure Laterality Date ? NONE CURRENT MEDICATIONS Current Outpatient Medications Medication Sig Dispense Refill ? norethindrone (AYGESTIN) 5 mg tablet Take 1 tab PO TID until bleeding stops then take 1 tab PO BID x 3 days then one tab PO daily until surgery 60 tablet 0 ? amphetamine-dextroamphetamine 15 mg tablet Take 1 tablet by mouth every 12 hours. ? hydrOXYzine HCl (ATARAX) 25 mg tablet TAKE 1 TABLET BY ORAL ROUTE 3 TIME(S) PER DAY TAKE 1-2 TABLETS, THREE TIMES A DAY NEEDED No current facility-administered medications for this visit. ALLERGIES: Venom-Honey Bee PERSONAL HISTORY: SOCIAL HISTORY Social History Tobacco Use ? Smoking status: Former Current packs/day: 0.50 Types: Cigarettes ? Smokeless tobacco: Never Vaping Use ? Vaping status: Some Days Substance Use Topics ? Alcohol use: Yes Comment: social- rare ? Drug use: No FAMILY HISTORY: FAMILY HISTORY FAMILY HISTORY Problem Relation Age of Onset ? Thyroid Mother REVIEW OF SYMPTOMS: negative except as noted above PHYSICAL EXAMINATION: VITALS: Last menstrual period 07/24/2024. GENERAL: The patient is well nourished, well hydrated in no acute distress. , The patient is oriented to time, place, and person. NECK: full range of motion LUNGS: Clear to auscultation bilaterally. no wheezes, rhonchi or rales HEART: Regular rate and rhythm, Normal heart sounds, and No murmurs or gallops IMPRESSION: 29yo with AUB and Endometrial polyp PLAN: hysteroscopy, D&C, polypectomy with symphion and Liletta IUD insertion Pt has been counseled on risks/benefits and alternatives of surgery including but not limited to anesthesia, bleeding, infection, uterine perforation with subsequent injury to pelvic structures including bowel, bladder, ureters and vessels. Pt wishes to proceed with surgery at this time. CBC ordered today Pre and post op instructions reviewed I have reviewed and updated past medical and surgical history, medications and allergies Grace Collier MD
[2024-09-10] VITALS (9 sets, daily range): BP systolic 102–120; BP diastolic 56–69; PULSE 54–81; RESP 16–18; TEMP 36.3–37.4; O2SAT 100; BMI 22.4
--- NOTE | 2024-09-10 10:22 | PCM.PRE.AN2 ---
ASA Classification* ASA Classification ASA Classification: 2 Assessment & Plan Anesthesia* Anesthesia Assessment Anesthesia Assessment: Discussed sedation and/or anesthesia options, risks, benefits, and alternatives with patient/parents/legal guardian/POA. Questions invited. The patient/parents/legal guardian/POA seems to understand and agrees to proceed with anesthesia plan. Reviewed the physical assessment, medical history, allergy history and patient home medications list prior to surgery/procedure/anesthetic and documented any changes. Performed airway and anesthesia risk assessments. Anesthesia Type Anesthesia Type: MAC Anesthesia Focused Assessment* Airway Assessment Mouth opens: >3 cm Mallampati Score: II Labs Anesthesia Preop lab: CBC WBC 8.9 K/mm3 (4.4-11.0) 07/29/22 19:00 07/29/22 RBC 4.10 M/mm3 (4.2-5.4) L 07/29/22 19:00 07/29/22 Hgb 12.5 g/dL (12.0-15.0) 07/29/22 19:00 07/29/22 Hct 36.8 % (37-47) L 07/29/22 19:00 07/29/22 Plt Count 236 K/mm3 (150-450) 07/29/22 19:00 07/29/22 CHEMISTRY Potassium 3.6 mmol/L (3.5-5.1) 07/29/22 19:00 07/29/22 Sodium 141 mmol/L (136-145) 07/29/22 19:00 07/29/22 BUN 12 mg/dL (7-18) 07/29/22 19:00 07/29/22 Creatinine 0.74 mg/dL (0.55-1.02) 07/29/22 19:00 07/29/22 Glucose 86 mg/dL (74-106) 07/29/22 19:00 07/29/22 COAG Urine Test Negative Negative 07/29/22 18:45 07/29/22 Pre-Assessment Diagnosis/Proposed Procedure Planned Operative Procedure(s): Hysteroscopy,D&C Symphion, polypectomy, Liletta insertion Anesthesia History Anesthesia History - personnel administrator: Anesthesia History - personnel administrator Hx Hospitalization No 08/23/24 09:11 Any Problems With Anesthesia No 08/23/24 09:11 Cholinesterase deficiency No 08/23/24 09:11 You/Your Family Experience No 08/23/24 09:11 fever (hyperthermia) with Relationship Recent Exposure to Contagious Disease Does patient have nerve No 08/23/24 09:11 stimulator Patient instructed to have device shut off --Does patient have Pacemaker or ICD? When Was Last Pacemaker Check QUESTION #4 FULL TEXT: You/Your Family Experience fever (hyperthermia) with Anesthesia Last Oral Intake Last Oral intake: Last Oral Intake NPO since Meds taken in AM with sips of water? Meds patient instructed to take am of surgery PONV PONV - personnel administrator: PONV - personnel administrator Female Yes 08/23/24 09:11 HX of Motion Sickness Yes 08/23/24 09:11 HX of N/V After Surgery No 08/23/24 09:11 Non-Smoker Yes 08/23/24 09:11 Duration of Surgery greater No 08/23/24 09:11 than 60 minutes Number of Risk Factors 3 08/23/24 09:11 PONV Score Moderate Risk 08/23/24 09:11 Height & Weight Height & Weight: Anesthesia: Height & Weight Height 5 ft 8 in 07/29/22 18:12 Respiratory Assessment Respiratory Assessment - personnel administrator: Respiratory Tract Infection Hx - personnel administrator Hx Respiratory Tract Infection No 08/23/24 09:11 STOP Sleep Apnea STOP Sleep Apnea - personnel administrator: STOP Sleep Apnea - personnel administrator Hx Hypertension No 08/23/24 09:11 Hx Sleep Apnea No 08/23/24 09:11 CPAP BIPAP Do you snore loudly (louder No 08/23/24 09:11 than talking or can be heard Do you often feel tired/ No 08/23/24 09:11 fatigued/ sleepy during daytime? Has anyone observed you stop No 08/23/24 09:11 breathing during sleep? STOP Results Negative 08/23/24 09:11 QUESTION #5 FULL TEXT : Do you snore loudly (louder than talking or can be heard through closed doors)? Tobacco Use History Tobacco Use History - personnel administrator: Tobacco Use History - personnel administrator Tobacco Use Smoking Status Former smoker 08/23/24 09:11 Hx Tobacco Use Yes 08/23/24 09:11 Years Smoking 5 08/23/24 09:11 Packs Smoked per Day Smoking Cessation Date was Yes - quit smoking within 15 08/23/24 09:11 within the last 15 years years Hx Smoking Cessation Date Hx Smoking Cessation No 08/23/24 09:11 Counseling Hematologic Medial History Hematologic Hx - personnel administrator: Hematologic Medical Hx - stock chaser Hx of Blood Transfusion No 08/23/24 09:11 Hx of Transfusion in last 3 No 08/23/24 09:11 Months Date of Last Transfusion (if within last 3 months) Ever experience any problems No 08/23/24 09:11 with transfusion(s)? Specify any problems Hx of Preganancy in last 3 No 08/23/24 09:11 Months Nurse Filling Out Transfusion JZOLLINGE 08/23/24 09:11 & Questions: Date: 08/23/24 08/23/24 09:11 Time: 09:13 08/23/24 09:11 Patient unable to answer at this time (ie. confused, unrespo /Reproduction History /Reproductive History - personnel administrator: /Reproductive Hx- personnel administrator Hx Now No 08/23/24 09:11 Gestational Age (in weeks): EDC: Hx Hx Para Hx Section SAB No 08/23/24 09:11 Active Medications Active Medications: Current Medications Generic Name Dose Route Start Last Admin Trade Name Freq PRN Reason Stop Dose Admin Lactated Ringer's 1,000 mls @ 15 mls/hr 09/10/24 10:15 IV .Q48H ISELA Levonorgestrel 1 each 09/10/24 11:30 Levonorgestrel Iud (Liletta) INTRA-UTER 09/10/24 11:31 X1 ONE PFSH Medical History MRSA infection Anxiety Alcohol use Low iron Migraine headache Injury of head and neck Former smoker Encounter for screening for COVID-19 COVID-19 Home Medications ?Medication ?Instructions ?Recorded ?Last Taken ?Type Lactobacillus acidophilus 10 100 mmu cells PO DAILY 08/23/24 09/09/24 History billion cell capsule (Probacap) dextroamphetamine-amphetamine 15 1 tab PO BID 08/23/24 09/09/24 History mg tablet hydroxyzine HCl 25 mg tablet 25 mg PO TID PRN PRN insomnia 08/23/24 09/09/24 History norethindrone acetate 5 mg tablet 5 mg PO BID 08/23/24 09/09/24 History vit no.133-ferrous 1 tab PO .qd 08/23/24 09/09/24 History fumarate 28 mg-folic acid 800 mcg tablet () Allergy/AdvReac Type Severity Reaction Status Date / Time bee venom protein (honey bee) Allergy Anaphylaxis Verified 09/10/24 10:20 Social History Smoking Status: Former smoker alcohol intake: current alcohol intake frequency: holidays/special occasions only Review of Systems (Anesthesia) ROS Narrative System reviewed and no additional complaints, except as documented.
[2024-09-10 10:29] LABS: Internal QC Validated? YES +Cl - CLEAR BKGD; Pregnancy, Urine Negative Negative; Record Kit Lot#,Urine Preg 0000947241
[2024-09-10] MEDS: Lactated Ringers 1,000 ML 15 ML IV (10:35)
--- NOTE | 2024-09-10 11:08 | DCINST_ITS ---
Discharge Instructions Diet Discharge Diet: No restrictions DC O2, CPAP, BIPAP needs Home O2 Discharge instructions: No Dressing / Incision May resume sexual activity in: 1 week Dressing / Incision Call your doctor if you observe: Fever of 101 or Higher, Inability to urinate, Using more than 1 pad per hour and Uncontrolled pain Follow Up Care Please Follow Up With: Grace Easley MD When: I will call you with pathology results in 1-2 weeks, if you feel you need an appointment please call [phone] Test Results: Test results from this visit will be discussed in further detail at your follow- up appointment, if applicable. Discharge Plan Admission Attending Provider: Grace Easley Primary Care Provider: Care PhysicianVenus Primary Instructions Print Language: Hungarian Discharge Orders/Prescriptions Prescriptions: No Action dextroamphetamine-amphetamine 15 mg tablet 1 tab PO BID norethindrone acetate 5 mg tablet 5 mg PO BID Rx Instructions: take until day of surgery 28-800 mg-mcg tablet 1 tab PO .qd Probacap 10 billion cell capsule 100 mmu cells PO DAILY hydroxyzine HCl 25 mg tablet 25 mg PO TID PRN PRN (Reason: insomnia) Referrals / Follow Up: Care PhysicianVenus Primary [Primary Care Provider] - Disposition Disposition (needs filled in before D/C Order can be placed): Home, Self Care
[2024-09-10] MEDS: Levonorgestrel IUD (Liletta) 1 EACH INTRA-UTER (11:19)
--- NOTE | 2024-09-10 11:21 | PCM.OPRPT ---
Operative Report (Standard) Operative Information Date of Procedure: 09/10/24 Pre-Operative Diagnosis: AUB, endometrial polyp Post-Operative Diagnosis: Same Surgery/Procedure Performed: Hysteroscopy, D&C, polypectomy with Liletta IUD insertion manager maritime: Yes Ssds Mk 2 Advanced Operator: Megan Henao MS4 Tasks completed by executive chef assistant: Retracting Additional manufacturing assistant?: No Type of Anesthesia: MAC RN Documented Start/Stop Times: Operation Date: 09/10/24 11:30 Case Time Into Pre-Op 09/10/24 10:08 Out of Pre-Op 09/10/24 10:58 Anesthesia Start 09/10/24 11:01 Into Room 09/10/24 11:01 Procedure Start Time: 11:11 Procedure Stop Time: 11:21 Select all DRAINS/GRAFTS/IMPLANTS that apply: Implanted device Implanted device details: Liletta IUD Estimated Blood Loss: <5cc Fluids Replaced: 800 Specimen collected: Yes Description of specimen(s) removed: Endometrial Curettings and Endometrial polyp Description of surgery: Informed consent was obtained the patient was taken the operating room she was placed in supine position. She was given anesthesia. She was then placed in the [facility] where she was prepped and draped in the normal sterile fashion. At this time the weighted speculum was placed in the posterior fornix of vagina. Single-tooth tenaculum was used to gently grasp the anterior lip the cervix. At this time the uterine cavity was sounded to approximately 7.5cm. Gentle dilatation was performed once adequate dilatation of the cervix was achieved the hysteroscope using normal saline as a distention medium was placed. Tubal ostia visualized- left tubal ostia had what appeared to be tiny polyps, Endometrial polyp noted on posterior aspect. Symphion resecting device used to obtain endometrial curettings and to perform polypectomy. Not able to remove tubal ostia polyps. Tissue will be sent to pathology for evaluation. Liletta IUD placed without difficulty- strings cut to 2cm from OS. Tenaculum removed. Good hemostasis. Instrument, lap count correct x 2. Vaginal Sweep was negative. Surgical Findings: Endometrial polyps and Left tubal ostia polyps- unable to remove due to location. Complications Complications: No Admit VTE Documentation VTE Present on Admission: Yes VTE Mechan Device Prophylaxis: SCD's VTE Pharm Prophylaxis ordered?: No Reason prophylaxis not ordered: Procedure Not Indicated
--- NOTE | 2024-09-10 11:30 | EMB_PTH ---
PATIENT: SOTO SOTELO [place] [facility] [place][id number] AGE/SX: 29/F ROOM: RE09/10/[address]: Dr. Grace Easley, MDDOB: 1995 BED: DIS: 09/10/2024 SPEC #: [id number] RECD: 09/10/24 11:46 STATUS: GENESIS BREWER #: [id number] ALEXA: 09/10/24 11:[address]: Grace Easley DEPT: SURGICAL PATHOLOGY RECD BY: Dano Barcenas ENTERED: 09/10/24 14:05 SP TYPE: ENDOM BX/C MARLON DR: No Primary Care Phys Tissues: A - Endometrium, NOS Procedures: Surgery Specimen Level IV HEADER OPERATION: Hysteroscopy, D&C, polypectomy PRE-OP DIAGNOSIS: Endometrial polyp, abnormal uterine bleeding TISSUE SUBMITTED: A- Endometrial polyp and endometrial curettings MICROSCOPIC DIAGNOSIS A. Endometrium, dilation and curettage: * Inactive endometrium with decidualized stromal alteration with areas of stromal breakdown compatible with hormonal therapy effect and focal polyp formation * Focal areas suggestive of adenomyosis MICROSCOPIC DESCRIPTION Slides are reviewed. GROSS DESCRIPTION A. Received in formalin labeled with the patient's name and date of . Designated as endometrial polyp and endometrial curettings is a 3.2 x 1.7 x 0.6 cm aggregate of agrawal-pink tissue fragments, mucoid material and clotted blood. Entirely submitted in 2 cassettes. MN 09/10/2024 CPT:72510
--- NOTE | 2024-09-10 11:38 | PCM.POST.ANE ---
Anesthesia: Postop Eval I Current Vital Signs Temperature: 97.8 F Pulse Rate: 68 Blood Pressure: 102/63 Respiratory Rate: 18 Pulse Ox: 100 Assessment Airway patent: Yes Spontaneous unlabored respirations: Yes nausea: No Vomiting: No Anesthesia Complication: No Fluid Hydration Crystalloid volume administer (ml): 800 Total IV fluid infused: 800 Progress Note Anesthesia document: Postop Eval 1 completed: Yes
[2024-09-10] MEDS: HYDROcodone Bitartrate/Apap 5/325 Tablet PO (12:34)
--- NOTE | 2024-09-10 12:53 | POSTOPAN2_ITS ---
Anesthesia Postop Eval I Sum Postop Eval Completion status Anesthesia document: Postop Eval 1 completed: Yes Anesthesia Postop Eval I Summary Anesthesia Postop Eval I Summary: Anesthesia Postop Eval I: Assessment Summary Airway patent Yes 09/10/24 11:38 METER READER.CSIR Spontaneous unlabored Yes 09/10/24 11:38 METER READER.CSIR respirations Mental status nausea No 09/10/24 11:38 METER READER.CSIR Vomiting No 09/10/24 11:38 METER READER.CSIR Anesthesia Postop Eval I: Fluid Summary Crystalloid volume administer 800 09/10/24 11:38 METER READER.CSIR (ml) Colloids volume administered ( ml) Blood Product volume administered (ml) Total IV fluid infused 800 09/10/24 11:38 METER READER.CSIR Anesthesia Postop Eval I: Summary Notes Anesthesia Complication No 09/10/24 11:38 METER READER.CSIR Anesthesia Complication Comment: Post-operative progress note Anesthesia: Postop Eval II Evaluation Mental status: Awake Pain Level: 0 nausea: No Vomiting: No
--- NOTE | 2024-09-10 12:53 | PCM.POSTANE2 ---
Anesthesia Postop Eval I Sum Postop Eval Completion status Anesthesia document: Postop Eval 1 completed: Yes Anesthesia Postop Eval I Summary Anesthesia Postop Eval I Summary: Anesthesia Postop Eval I: Assessment Summary Airway patent Yes 09/10/24 11:38 AOC OPERATIONS INTELLIGENCE OFFICER.CSIR Spontaneous unlabored Yes 09/10/24 11:38 AOC OPERATIONS INTELLIGENCE OFFICER.CSIR respirations Mental status nausea No 09/10/24 11:38 AOC OPERATIONS INTELLIGENCE OFFICER.CSIR Vomiting No 09/10/24 11:38 AOC OPERATIONS INTELLIGENCE OFFICER.CSIR Anesthesia Postop Eval I: Fluid Summary Crystalloid volume administer 800 09/10/24 11:38 AOC OPERATIONS INTELLIGENCE OFFICER.CSIR (ml) Colloids volume administered ( ml) Blood Product volume administered (ml) Total IV fluid infused 800 09/10/24 11:38 AOC OPERATIONS INTELLIGENCE OFFICER.CSIR Anesthesia Postop Eval I: Summary Notes Anesthesia Complication No 09/10/24 11:38 AOC OPERATIONS INTELLIGENCE OFFICER.CSIR Anesthesia Complication Comment: Post-operative progress note Anesthesia: Postop Eval II Evaluation Mental status: Awake Pain Level: 0 nausea: No Vomiting: No
== END 2024-09-10 12:55 | disposition home or self-care (01) ==
LOC: SDC 10:04 → AC 10:11
PROVIDERS: Referring Provider Obstetrics & Gynecology; Visit Provider Obstetrics & Gynecology
PROC: 0UB98ZZ Excision of Uterus, Via Natural or Artificial Opening Endoscopic (ICD-10-PCS; CPT 58558; principal; 2024-09-10 11:15)
DX: N84.0 Polyp of corpus uteri (principal); N93.9 Abnormal uterine and vaginal bleeding, unspecified; Z87.891 Personal history of nicotine dependence; Z30.014 Encounter for initial prescription of intrauterine contraceptive device; T38.805A Adverse effect of unspecified hormones and synthetic substitutes, initial encounter; Z79.899 Other long term (current) drug therapy
CPT/HCPCS: 58558; 58300; 00952; 81025; 88305; J2405